=== PATIENT | male | born 1985 | race Two or more races ===

== ENCOUNTER 2017-05-31 07:06 | Inpatient (IN) | payer BC ==
[~2017-05-31] VITALS: Ht 167.6 cm; Wt 118.8 kg
[2017-05-31 07:41] LABS: BASOPHIL % 0.3 % (0-2); PLATELET COUNT 320 x10^3mcL (130-400); RED CELL DISTRIBUTION WIDTH 13.4 % (11.5-14.5)
[2017-05-31 08:03] LABS: CALCIUM 8.6 mg/dL (8.5-10.1); CARBON DIOXIDE 27.9 mmol/L (21-32); CHLORIDE SERUM 100 mmol/L (98-107); CREATININE SERUM 0.9 mg/dL (0.7-1.3); GFR1 > 60 mL/min; GLUCOSE SERUM 134 mg/dL (74-106); POTASSIUM SERUM 3.4 mmol/L (3.5-5.1); SODIUM SERUM 137 mmol/L (136-145)
[2017-05-31 08:15] LABS: ALBUMIN 3.7 g/dL (3.4-5.0); ALKALINE PHOSPHATASE 63 U/L (46-116); ALT/SGPT 76 U/L (16-63); AMYLASE 35 U/L (25-115); AST/SGOT 33 U/L (15-37); BILIRUBIN TOTAL 0.5 mg/dL (0.20-1.00); CHOLESTEROL 173 mg/dL (<200); LIPASE 104 IU/L (73-393); T4(THYROXINE) 9.4 ug/dL (4.7-13.3); TOTAL PROTEIN, SERUM 7.2 g/dL (6.4-8.2)
[2017-05-31 08:20] LABS: HDL CHOLESTEROL 31 mg/dL (40-60)
[2017-05-31 08:21] LABS: microscopic required? NO
[2017-05-31 08:30] LABS: urine erythrocyte NEGATIVE (NEGATIVE)
[2017-05-31 08:46] LABS: AMPHETAMINE QUAL UR NONE DETECTED (NEG <=1000)
[2017-05-31] MEDS ORDERED: ZES20 PO (09:08)
[2017-05-31 10:10] VITALS: BP 126/72
[2017-05-31 10:20] LABS: T3 TOTAL 1.2 ng/mL
[2017-05-31 10:24] LABS: MAGNESIUM 2.4 mg/dL (1.8-2.4)
[2017-05-31 10:25] LABS: CHOLESTEROL/HDL RATIO 5.1
[2017-05-31 10:31] LABS: FREE T4 1.15 ng/dL (0.76-1.46); FREE THYROXINE INDEX 3.5 ug/dL (1.4-4.5); T4(THYROXINE) 9.5 ug/dL (4.7-13.3)
[2017-05-31 10:48] VITALS: BP 126/72
[2017-05-31 13:55] VITALS: BP 136/78
[2017-05-31 17:19] VITALS: BP 125/66
[2017-05-31 21:20] VITALS: BP 135/88
[2017-05-31 22:30] VITALS: BP 130/89
[2017-06-01 05:07] VITALS: BP 120/83
[2017-06-01 06:09] LABS: BASOPHIL % 0.4 % (0-2); PLATELET COUNT 288 x10^3mcL (130-400); RED CELL DISTRIBUTION WIDTH 13.2 % (11.5-14.5)
[2017-06-01 06:31] LABS: CALCIUM 8.1 mg/dL (8.5-10.1); CARBON DIOXIDE 29.3 mmol/L (21-32); CHLORIDE SERUM 104 mmol/L (98-107); CREATININE SERUM 0.8 mg/dL (0.7-1.3); GFR1 > 60 mL/min; GLUCOSE SERUM 122 mg/dL (74-106); POTASSIUM SERUM 3.8 mmol/L (3.5-5.1); SODIUM SERUM 139 mmol/L (136-145)
[2017-06-01 09:04] VITALS: Ht 167.6 cm; Wt 118.8 kg
== END 2017-06-01 09:55 | disposition left against medical advice (07) | DRG 206 ==
LOC: ED 07:06 → DU 08:54
PROVIDERS: Emergency Medicine; Family Medicine
DX: M94.0 Chondrocostal junction syndrome [Tietze] (principal); Z68.41 Body mass index [BMI] 40.0-44.9, adult; I24.9 Acute ischemic heart disease, unspecified; G45.9 Transient cerebral ischemic attack, unspecified; I10 Essential (primary) hypertension; E87.6 Hypokalemia; E66.9 Obesity, unspecified; E78.5 Hyperlipidemia, unspecified; E11.9 Type 2 diabetes mellitus without complications; K21.9 Gastro-esophageal reflux disease without esophagitis; Z53.21 Procedure and treatment not carried out due to patient leaving prior to being seen by health care provider; Z90.49 Acquired absence of other specified parts of digestive tract; Z82.49 Family history of ischemic heart disease and other diseases of the circulatory system; Z83.3 Family history of diabetes mellitus; Z90.89 Acquired absence of other organs
CPT/HCPCS: 82962; 83880; 84439; A9577; J7030; Q0092